=== PATIENT | male | born 1995 | race Caucasian/White ===

== ENCOUNTER 2016-11-29 08:48 | Emergency (ER) | payer SELFPAY ==
[2016-11-29 09:39] VITALS: BP 138/85
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
== END 2016-11-29 12:20 | disposition short-term general hospital (02) ==
LOC: ED 08:48
DX: S32.000A Wedge compression fracture of unspecified lumbar vertebra, initial encounter for closed fracture (principal); V89.2XXA Person injured in unspecified motor-vehicle accident, traffic, initial encounter; Y93.9 Activity, unspecified; Y99.9 Unspecified external cause status
CPT/HCPCS: 72110; 99284